=== PATIENT | male | born 1955 | race Two or more races ===

== ENCOUNTER 2025-05-22 18:47 | Inpatient (IN) | payer MEDICARE, SELFPAY ==
--- NOTE | 2025-05-22 18:56 | EKG_ITS ---
[facility] Test Date: 2025-05-22 Pat Name: SERGIO NICHOLAS Department: Room: - Gender: Male Backer Up: : 1955 Requested By: ED Temporary Provider Order Number: [id number] Reading MD: ED Temporary Provider Measurements Intervals [place] Rate: 96 P: 58 VA: 134 QRS: 53 QRSD: 86 T: 60 QT: 381 QTc: 483 Interpretive Statements SINUS RHYTHM NONSPECIFIC ST & T-WAVE ABNORMALITY No previous ECG available for comparison /store/S0/[id number].pdf
[2025-05-22 19:05] VITALS: BP 168/76; PULSE 94; RESP 20; TEMP 37.3; O2SAT 96
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
[2025-05-22 19:16] VITALS: BP 168/76; PULSE 89; RESP 20; O2SAT 98
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
[2025-05-22 19:40] LABS: Basophils # (Auto) 0.0 Thou/mm3 (0.0-0.2); Basophils % (Auto) 0 % (0-2.5); Eosinophils # (Auto) 0.5 Thou/mm3 (0.0-0.5); Eosinophils % (Auto) 4 % (0-10); Immature Granulocytes Auto 0.92 Thou/mm3 (0.00-0.00); Lymphocytes # (Auto) 3.5 Thou/mm3 (1.0-4.8); Lymphocytes % (Auto) 24 % (10-50); Mean Corpuscular HGB Conc 30.1 g/dl (31.0-37.0); Mean Corpuscular Hemoglobin 31.8 pg (25.0-35.0); Mean Corpuscular Volume 106 fL (80-100); Monocytes # (Auto) 1.0 Thou/mm3 (0.0-0.8); Monocytes % (Auto) 7 % (0-12); Neutrophils # (Auto) 8.5 Thou/mm3 (1.8-7.7); Neutrophils % (Auto) 59 % (37-80); Nucleated Red Blood Cell # 0.14 Thou/mm3 (0.00-0.00); Nucleated Red Blood Cell % 1 /100 WBC (0); Platelet Count 426 Thou/mm3 (140-440); RDW Standard Deviation 62.0 fL (35.1-43.9); Red Blood Count 1.73 Miln/mm3 (4.50-5.90); White Blood Count 14.5 Thou/mm3 (3.8-10.6)
[2025-05-22 19:46] LABS: Hematocrit 18.3 % (41.0-53.0); Hemoglobin 5.5 g/dL (13.5-16.0)
[2025-05-22 19:52] LABS: Alanine Aminotransferase < 7 U/L (10-49); Albumin, Serum 4.0 gm/dL (3.4-4.8); Albumin/Globulin Ratio 1.5 (1.2-2.2); Alkaline Phosphatase 74 U/L (46-116); Anion Gap 11 (7-16); Aspartate Amino Transferase 21 U/L (0-34); BUN/Creatinine Ratio 15 Ratio (12-20); Bilirubin,Total 2.0 mg/dL (0.3-1.2); Blood Urea Nitrogen 48 mg/dL (9-23); Calcium 9.3 mg/dL (8.3-10.6); Calcium (Corrected) 9.3 mg/dL (8.5-10.1); Carbon Dioxide 23.2 mMol/L (20.0-31.0); Chloride 107 mMol/L (98-107); Creatinine (Component) 3.1 mg/dL (0.6-1.3); Globulin 2.7 gm/dL (2.3-3.5); Glucose 133 mg/dL (74-106); Osmolality,Calculated 295 (275-295); Potassium 4.0 mMol/L (3.4-5.1); Sodium 141 mMol/L (136-145); Total Protein 6.7 gm/dL (5.7-8.2); Troponin I 0.032 ng/mL (0.0-0.045); eGFR 21 See Note
--- NOTE | 2025-05-22 21:25 | XR_ITS ---
Examination: Retroperitoneal ultrasound, complete Technique: Multiple high resolution grayscale images of the retroperitoneum obtained, including kidneys and bladder. Exam date and time:May 22, 2025 10:48 PM Indications: Chest pain radiating to left arm, diagnosis acute renal insufficiency Findings: Right kidney 8.5 cm cortex 1.2 cm 18 mm lower pole cyst Left kidney 10.0 cm cortex 1.9 cm Medical 19 mm cyst Moderate renal parenchymal scar formation No hydronephrosis No bladder mass or bladder calculi Bladder prevoid by 119 cc Prostate 4.9 x 3.7 x 4.5 cm no prostate nodules Impression: Moderate bilateral renal parenchymal scar formation Small right kidney with renal cortical thinning
--- NOTE | 2025-05-22 21:34 | ESHP_ITS ---
Documentation for date of: 05/22/25 HPI History of Present Illness Chief complaint: Chest pain History of present illness: 70 y/o M with PMHx significant for HTN, DM, CKD, prostate cancer with bone metastasis presents with chief complaint of chest pain x 1 day. Patient is visiting from [place], states has been his usual day of health until yesterday when he developed recurrent chest pain. Patient unable to describe chest pain in detail, states that it is left-sided, radiating down left arm, and strongly associated with rising from lying down to standing up. The chest pain is also associated with warm feelings, lightheadedness. Patient Dors is 1 episode of emesis this morning. Patient denies chest pain when at rest. Patient denies fevers, chills, shortness of breath, abdominal pain. ED COURSE: Labs significant for: WBC 14.5, hemoglobin 5.5. BUN 48, creatinine 3.1, EGFR 21. T. bili 2.0, LFTs otherwise normal. Stool occult blood negative. Troponin 0.032. Imaging significant for: Chest x-ray unremarkable. EKG unremarkable. 2 units PRBCs ordered in the ED. PMH: HTN, DM, CKD, prostate cancer with bone metastasis PSH: Kidney biopsy SH: Denies alcohol, tobacco, illicit drug use Allergies:?NKDA Medications: Patient unsure, med rec's pending. Review of Systems Review of Systems Systems Reviewed: All systems reviewed, normal except as documented Past Medical History Past Medical History Comments PMH COMMENT: PMH: HTN, DM, CKD, prostate cancer with bone metastasis PSH: Kidney biopsy SH: Denies alcohol, tobacco, illicit drug use Allergies:?NKDA Medications: Patient unsure, med rec's pending. Exam Vital Signs Temp Pulse Resp BP Pulse Ox O2 Del Method 99.2 F 89 20 168/76 H 98 Room Air 05/22/25 19:05 05/22/25 19:16 05/22/25 19:16 05/22/25 19:16 05/22/25 19:16 05/22/25 19:16 Narrative Exam PE: Gen: Well-developed and well-nourished. HEENT: NCAT, PERRLA, EOMI, MMM, anicteric conjunctivae. CVS: normal S1 and S2. RRR. No M/R/G. Resp: CTA B/L. No rhonchi, rales, crackles or wheezing. Abd: soft, non-tender, non-distended. MSK: Good ROM in BUE & BLE. No edema or rash. Neuro: CN II-XII grossly intact. Strength 5/5 in BUE & BLE. Alert and oriented x3. Psych: appropriate mood and affect. Results: Labs 05/22/25 19:18 05/22/25 19:18 Labs: Short CBC 05/22/25 Range/Units 19:18 WBC 14.5 H (3.8-10.6) Thou/mm3 Hgb 5.5 L* (13.5-16.0) g/dL Hct 18.3 L* (41.0-53.0) % Plt Count 426 (140-440) Thou/mm3 BMP 05/22/25 19:18 Sodium 141 Potassium 4.0 Chloride 107 Carbon Dioxide 23.2 BUN 48 H Creatinine 3.1 H Glucose 133 H Calcium 9.3 Cardiac Enzymes 05/22/25 Range/Units 19:18 Troponin I 0.032 (0.0-0.045) ng/mL Liver Function 05/22/25 Range/Units 19:18 Total Bilirubin 2.0 H (0.3-1.2) mg/dL AST 21 (0-34) U/L ALT < 7 L (10-49) U/L Alkaline Phosphatase 74 (46-116) U/L Albumin 4.0 (3.4-4.8) gm/dL Quality Measures Quality Measures VTE prophylaxis Advance care planning discussed with:: patient and child Medications Home Medications and Allergies Allergies Allergy/AdvReac Type Severity Reaction Status Date / Time No Known Allergies Allergy Verified 05/22/25 18:54 Visit Medications Acetaminophen (Acetaminophen 325 Mg Tablet) 650 mg PO Q6H PRN PRN Reason: Fever >100.4 or pain 1-3(mild) Stop: 06/21/25 21:21 Hydrocodone Bitart/Acetaminophen (Hydrocodone/Apap 5/325 Tablet) 1 tab PO Q4HR PRN PRN Reason: PAIN SCALE 4-10(Mod-Sev Stop: 05/27/25 21:21 Docusate Sodium (Docusate Sod 100 Mg Capsule) 100 mg PO QDAY PRN; Protocol PRN Reason: CONSTIPATION Stop: 06/21/25 21:21 Ondansetron HCl (Ondansetron Inj 2 Mg/Ml Inj 2 Ml) 4 mg IVP Q6H PRN; Protocol PRN Reason: NAUSEA OR VOMITING Stop: 06/21/25 21:21 Sennosides (Senna Tablet) 1 tab PO QDAY PRN; Protocol PRN Reason: constipation Stop: 06/21/25 21:21 Assessment & Plan Plan 70 y/o M with PMHx significant for HTN, DM, CKD, prostate cancer with bone metastasis presents with chief complaint of chest pain x 1 day, admitted for ACS rule out and symptomatic anemia. #ACS rule out Patient presented chief complaint of chest pain x 1 day. Patient states the pain is left-sided, rating down left arm, occurs when patient moves from lying down to standing. Sensation associated with morphine, when this consultation is at bedside. Pain can occur at rest. EKG benign, initial Trope 0.032. Patient's history of HTN, DM, CKD, at risk for ACS. - Trend troponin - Ordered BNP - Telemonitoring - TSH, A1c, lipid panel pending #Symptomatic anemia Patient presented with hemoglobin of 5.5. Chief complaint indicates possible presyncope with chest pain, warm feeling, feel he is about to faint associated with moving from lying down to standing. Patient denies melena, hematochezia, hematemesis. Stool occult blood negative. 2 units PRBCs ordered by ED. MCV 106. Notably patient has chronic kidney disease. - Posttransfusion H&H - Iron, B12, folate ordered, follow-up - LDH, haptoglobin, reticulocyte count ordered follow-up - Direct bilirubin peripheral smear ordered, follow-up - Avoid anticoagulants #CKD Patient reportedly of CKD, follows with [employer], concern for needing dialysis soon. BUN 48, creatinine 3.1, EGFR 21, no previous labs to compare. - Avoid nephrotoxins - Renally dose medications - Renal scan ordered, follow-up #HTN #DM #Prostate cancer with mets to bones Patient history as stated. Patient unsure of his medications. Patient reports taking insulin 5 units intermittently. Med reconciliation pending. Not currently chemotherapy given CKD. Follows with oncologist Dr. Jourdan Jewell in [place]. Initial serum glucose 133 - Resume home meds when appropriate, pending med rec's - A1c ordered, follow-up DVT prophylaxis: SCDs GI prophylaxis: Protonix Diet: Cardiac, renal, carb consistent Lines: Peripheral IV Code status: Full code Plan of care discussed with attending Dr. Martinez. Jared Lloyd MD PGY?2 Attending Provider Attestation/Addendum After examination of the patient and review of the clinical data I feel that this patient needs admission to the hospital for further treatment/evaluation. I have discussed and was present for the essential components of the history, physical examination, diagnosis, and treatment plan with the resident. I agree with the patient's care as documented by the resident and amended herein by me. Carlos Martinez, DO. Although this document has been carefully reviewed, there may still be some phonetic and other typographical errors. These errors are purely grammatical due to imperfections in the software program and should not be construed in any way to compromise the substance of the patient's medical care during this visit. Patient seen and evaluated in the ED. In short, 70-year-old male with a significant's medical history of prostate cancer with bone metastasis and per chart review, on leuprolide, follows with oncologist in [place], Dr. Jourdan Jewell, hypertension, diabetes on insulin, CKD, also follows with [employer] in [place] where he is from, the patient is presently out visiting his son here in [place], presented with chest pain for approximately 1 day prior to admission. At time of bedside visit, the pain had largely resolved, he denies any other abdominal pain with and without palpation to include right upper quadrant pain. He denies palpitations, headache, vision disturbances, nausea, vomiting, diarrhea at present. In the ED, BP was 168/76, other vital signs stable, significant labs included WBC of 14.5, hemoglobin was 5.5 with an MCV of 106, he was presently being transfused 2 units by the ED, sodium potassium within normal limits, BUN 48, creatinine 3.1, unknown baseline however per the patient's daughter who we spoke with on the phone, his [employer] was considering dialysis, T. bili 2.0, other liver enzymes normal, troponin negative, chest x-ray unremarkable and EKG also demonstrating NSR. FOBT was negative Patient subsequently admitted to acute telemetry for ACS rule, the patient may have had anginal symptoms in setting of severe anemia, the patient's macrocytic anemia possibly secondary to CKD versus possibly MDS from his metastatic prostate cancer, unclear if the patient actually has an HOOD on CKD, uremia, slightly elevated T. bili however the patient completely asymptomatic. As such the patient will be transfused for hemoglobin less than 7, transfused 2 units in the ED. GI not consulted now, lower suspicion for GI bleed at this time, may repeat FOBT tomorrow however we will defer to day team, iron panel, reticulocyte count, B12, folate, LDH, haptoglobin, peripheral smear has all been ordered. We will trend the troponin, and a renal ultrasound has been ordered as well as a BNP. A1c, LDL and TSH also ordered. Patient is stable, doing well, will monitor closely tonight. The patient's home meds that I discovered in the system are as follows however final med rec from the patient's daughter is pending: Procrit, hydralazine, Coreg, lisinopril, Crestor, calcitriol, leuprolide, Lantus and previous usage of prednisone.
[2025-05-22 21:53] LABS: OBS Card Lot # 0124; OBS Developer Expiration Date 0926; OBS Developer Lot # 23003; OBS Performed By escas1; OBS QC OK? Yes; Occult Blood, Stool Negative (Negative)
[2025-05-22 21:56] LABS: Immature Reticulocyte Fraction 41.9 % (2.3-13.4); Reticulocyte % (Auto) 4.9 % (0.5-1.5); Reticulocyte Absolute Auto 78.6 Biln/L (25.0-75.0); Reticulocyte Hgb Content 35.4 pg (28.0-35.0)
[2025-05-22 21:58] LABS: Path Review Blood Smear Sent to Pathologist
[2025-05-22 22:09] LABS: Bilirubin,Direct 0.5 mg/dL (0.0-0.3); LDH (Lactate Dehydrogenase) 414 U/L (120-246)
[2025-05-22 22:21] LABS: B-Type Natriuretic Peptide 104 pg/mL (0-100)
[2025-05-22 22:36] LABS: Folate 8.53 ng/mL (>5.38); Vitamin B12 417 pg/mL (211-911)
[2025-05-22 23:07] VITALS: BP 140/68; PULSE 83; RESP 20; TEMP 37.3; O2SAT 97
[2025-05-22 23:23] VITALS: BP 140/68; PULSE 83; RESP 16; TEMP 37.2; O2SAT 96
[2025-05-22 23:28] VITALS: BP 140/68; PULSE 84; RESP 16; TEMP 37.2; O2SAT 96
[2025-05-23] VITALS (11 sets, daily range): BP systolic 127–153; BP diastolic 60–89; PULSE 74–82; RESP 13–24; TEMP 36.4–37.5; O2SAT 96–98
[2025-05-23 05:46] LABS: Basophils # (Auto) 0.1 Thou/mm3 (0.0-0.2); Basophils % (Auto) 1 % (0-2.5); Eosinophils # (Auto) 0.5 Thou/mm3 (0.0-0.5); Eosinophils % (Auto) 4 % (0-10); Hematocrit 25.2 % (41.0-53.0); Immature Granulocytes Auto 0.68 Thou/mm3 (0.00-0.00); Lymphocytes # (Auto) 2.6 Thou/mm3 (1.0-4.8); Lymphocytes % (Auto) 24 % (10-50); Mean Corpuscular HGB Conc 32.5 g/dl (31.0-37.0); Mean Corpuscular Hemoglobin 32.5 pg (25.0-35.0); Mean Corpuscular Volume 100 fL (80-100); Monocytes # (Auto) 0.9 Thou/mm3 (0.0-0.8); Monocytes % (Auto) 8 % (0-12); Neutrophils # (Auto) 6.2 Thou/mm3 (1.8-7.7); Neutrophils % (Auto) 57 % (37-80); Nucleated Red Blood Cell # 0.04 Thou/mm3 (0.00-0.00); Nucleated Red Blood Cell % 0 /100 WBC (0); Platelet Count 353 Thou/mm3 (140-440); RDW Standard Deviation 58.1 fL (35.1-43.9); Red Blood Count 2.52 Miln/mm3 (4.50-5.90); White Blood Count 11.0 Thou/mm3 (3.8-10.6)
[2025-05-23 05:55] LABS: Hemoglobin 8.2 g/dL (13.5-16.0)
[2025-05-23 06:03] LABS: INR 1.0 (0.9-1.3); Partial Thromboplastin Time 24.8 Seconds (22.0-36.0); Prothrombin Time 11.3 Seconds (9.0-12.2)
[2025-05-23 06:26] LABS: Iron 108 mcg/dL (65-175); Percent Iron Saturation 46 % (20-55); Total Iron Binding Capacity 233 mcg/dL (250-425); Unsaturated Iron Binding 125 (225-295)
[2025-05-23 06:50] LABS: Alanine Aminotransferase < 7 U/L (10-49); Albumin, Serum 3.9 gm/dL (3.4-4.8); Albumin/Globulin Ratio 2.0 (1.2-2.2); Alkaline Phosphatase 62 U/L (46-116); Anion Gap 12 (7-16); Aspartate Amino Transferase 17 U/L (0-34); BUN/Creatinine Ratio 15 Ratio (12-20); Bilirubin,Total 1.1 mg/dL (0.3-1.2); Blood Urea Nitrogen 43 mg/dL (9-23); Calcium 9.5 mg/dL (8.3-10.6); Calcium (Corrected) 9.6 mg/dL (8.5-10.1); Carbon Dioxide 21.8 mMol/L (20.0-31.0); Cardiac Risk Estimate 4.0 RATIO (4.0-6.7); Chloride 111 mMol/L (98-107); Cholesterol 120 mg/dL (132-200); Creatinine (Component) 2.8 mg/dL (0.6-1.3); Estimated Creatinine Clearance 23.8 mL/min (>60); Globulin 2.0 gm/dL (2.3-3.5); Glucose 105 mg/dL (74-106); HDL Cholesterol 30 mg/dL (40-60); LDL Cholesterol,Calculated 35 mg/dL (0-130); Magnesium 1.9 mg/dL (1.6-2.6); Osmolality,Calculated 299 (275-295); Phosphorous 3.2 mg/dL (2.4-5.1); Potassium 4.1 mMol/L (3.4-5.1); Sodium 145 mMol/L (136-145); Thyroid Stimulating Hormone 1.80 uIU/mL (0.55-4.78); Total Protein 5.9 gm/dL (5.7-8.2); Triglycerides 275 mg/dL (30-150); Troponin I 0.024 ng/mL (0.0-0.045); eGFR 24 See Note
--- NOTE | 2025-05-23 07:26 | PD.RESPRO ---
Documentation for date of: 05/23/25 Exam Vital Signs Temp Pulse Resp BP Pulse Ox O2 Del Method 97.6 F 80 18 153/75 H 96 Room Air 05/23/25 03:38 05/23/25 04:00 05/23/25 03:38 05/23/25 03:38 05/23/25 03:38 05/23/25 03:27 Objective Labs 05/23/25 05:06 05/23/25 05:06 Labs: Laboratory Results - last 24 hr 05/22/25 05/22/25 05/22/25 19:18 20:00 20:43 WBC 14.5 H RBC 1.73 L* Hgb 5.5 L* Hct 18.3 L* MCV 106 H MCH 31.8 MCHC 30.1 L RDW Std Deviation 62.0 H Plt Count 426 Neut % (Auto) 59 Lymph % (Auto) 24 [place] % (Auto) 7 Eos % (Auto) 4 Baso % (Auto) 0 Neut # (Auto) 8.5 H Lymph # (Auto) 3.5 [place] # (Auto) 1.0 H Eos # (Auto) 0.5 Baso # (Auto) 0.0 Immature Gran # (Auto) 0.92 H Absolute Nucleated RBC 0.14 H Immature Gran % 6 H Nucleated RBC % 1 H Smear Path Review Sent to Pathologist Not Performed. Retic Count (auto) 4.9 H Absolute Retic 78.6 H Immature Retic Fraction 41.9 H Retic Hgb Content CHr 35.4 H PT INR APTT Sodium 141 Potassium 4.0 Chloride 107 Carbon Dioxide 23.2 Anion Gap 11 BUN 48 H Creatinine 3.1 H Estim Creat Clear Calc Not Performed. eGFR 21 L BUN/Creatinine Ratio [address] Glu mg/dL Hemoglobin A1c Calculated Osmolality 295 Calcium 9.3 Corrected Calcium 9.3 Phosphorus Magnesium Iron TIBC Iron Saturation Unsat Iron Binding Total Bilirubin 2.0 H Direct Bilirubin AST 21 ALT < 7 L Alkaline Phosphatase 74 Lactate Dehydrogenase Troponin I 0.032 B-Natriuretic Peptide 104 H Total Protein 6.7 Albumin 4.0 Globulin 2.7 Albumin/Globulin Ratio 1.5 Triglycerides Cholesterol LDL Cholesterol, Calc HDL Cholesterol Cholesterol/HDL Ratio Vitamin B12 417 Folate 8.53 TSH Stool Occult Blood Negative Blood Type O Positive Antibody Screen NEGATIVE Crossmatch See Detail Blood Bank Wristband ID Yes 05/22/25 05/23/25 21:29 05:06 WBC 11.0 H RBC 2.52 L Hgb 8.2 L D Hct 25.2 L MCV 100 MCH 32.5 MCHC 32.5 RDW Std Deviation 58.1 H Plt Count 353 D Neut % (Auto) 57 Lymph % (Auto) 24 [place] % (Auto) 8 Eos % (Auto) 4 Baso % (Auto) 1 Neut # (Auto) 6.2 Lymph # (Auto) 2.6 [place] # (Auto) 0.9 H Eos # (Auto) 0.5 Baso # (Auto) 0.1 Immature Gran # (Auto) 0.68 H Absolute Nucleated RBC 0.04 H Immature Gran % 6 H Nucleated RBC % 0 Smear [address] Review Retic Count (auto) Absolute Retic Immature Retic Fraction Retic Hgb Content CHr PT 11.3 INR 1.0 APTT 24.8 Sodium 145 Potassium 4.1 Chloride 111 H Carbon Dioxide 21.8 Anion Gap 12 BUN 43 H Creatinine 2.8 H Estim Creat Clear Calc 23.8 L eGFR 24 L BUN/Creatinine Ratio [address] Glu mg/dL Cancelled Hemoglobin A1c Cancelled Calculated Osmolality 299 H Calcium 9.5 Corrected Calcium 9.6 Phosphorus 3.2 Magnesium 1.9 Iron 108 TIBC 233 L Iron Saturation 46 Unsat Iron Binding 125 L Total Bilirubin 1.1 D Direct Bilirubin 0.5 H AST 17 ALT < 7 L Alkaline Phosphatase 62 Lactate Dehydrogenase 414 H Troponin I 0.024 B-Natriuretic Peptide Total Protein 5.9 Albumin 3.9 Globulin 2.0 L Albumin/Globulin Ratio 2.0 Triglycerides 275 H Cholesterol 120 L LDL Cholesterol, Calc 35 HDL Cholesterol 30 L Cholesterol/HDL Ratio 4.0 Vitamin B12 Folate TSH 1.80 Stool Occult Blood Blood Type Antibody Screen Crossmatch Blood Bank Wristband ID Quality Measures Quality Measures VTE prophylaxis Assessment & Plan Assessment Current Active Medications: Generic Name Dose Route Start Last Admin Trade Name Freq PRN Reason Stop Dose Admin Acetaminophen 650 mg 05/22/25 21:22 Acetaminophen 325 Mg Tablet PO 06/21/25 21:21 Q6H PRN Fever >100.4 or pain 1-3(mild) Hydrocodone Bitart/Acetaminophen 1 tab 05/22/25 21:22 Hydrocodone/Apap 5/325 Tablet PO 05/27/25 21:21 Q4HR PRN PAIN SCALE 4-10(Mod-Sev Docusate Sodium 100 mg 05/22/25 21:22 Docusate Sod 100 Mg Capsule PO 06/21/25 21:21 QDAY PRN CONSTIPATION Protocol Ondansetron HCl 4 mg 05/22/25 21:22 Ondansetron Inj 2 Mg/Ml Inj 2 Ml IVP 06/21/25 21:21 Q6H PRN NAUSEA OR VOMITING Protocol Pantoprazole Sodium 40 mg 05/23/25 09:00 Pantoprazole Inj 40 Mg Vial IVP 06/22/25 08:59 QDAY ADRIANA Sennosides 1 tab 05/22/25 21:22 Senna Tablet PO 06/21/25 21:21 QDAY PRN constipation Protocol
--- NOTE | 2025-05-23 11:01 | PC.SS ---
Patient is a 70YO Turkish speaking, male, reason for visit: ACS RULE OUT, ANEMIA SS met with patient and his sister in law Shaina Paige at bedside. Role and purpose of today?s contact was explained. Patient confirmed his demographic information and stated he lives with his daughter. He stated his daughter Luis Carlos Paige [phone], is his primary surrogate medical decision maker. Patient stated he is independent with ADL completion and ambulation as well.? PCP: Dr. Elia Mancilla ?[facility], unable to recall last appt. Dental Service Technician: Estela Vera. Oncologist: Jourdan Vaughan. ? Next of kin: Daughter Luis Carlos Paige [phone], Discharge plan: Home, parent to transport.
[2025-05-23 12:39] LABS: Hematocrit 25.1 % (41.0-53.0)
[2025-05-23 12:51] LABS: Hemoglobin 8.0 g/dL (13.5-16.0)
--- NOTE | 2025-05-23 12:56 | ESDS_ITS ---
<Statement entered by Carrie Amaral MD - 05/23/25 17:10> I attest that I was physically present for the evaluation, physical examination, lab and imaging review of the patient with the residents. I discussed the case with the residents and agree with the findings and plans of care as documented below. At bedside today, patient states he is feeling well and denies any new complaints. Vital signs are stable. Hemoglobin level after transfusion is 8.2, follow-up level also remained stable. Noted to have elevated reticulocyte count normal iron panel, normal folate and vitamin B12. LDH is elevated but haptoglobin and peripheral blood smear are pending. Renal ultrasound was obtained, shows findings consistent with CKD. We will discharge the patient, recommended follow-up CBC in 2 days, also recommended to follow-up with PCP within a week, may need further workup to evaluate the cause of anemia. Carrie Amaral MD <Statement entered by Ania Ramirez MD - 05/23/25 15:56> Note reviewed, I agree with most of its contents and agree with the patient's care as documented by Dr. Infante. The patient's management plan was discussed with my attending physician Dr. Amaral. Ania Ramirez, PGY-2 Planned Discharge Date 05/23/25 DS: Providers Provider Date of admission: 05/22/25 21:22 Primary care physician: Physician Mariana Primary/Family Admitting Provider: Darren Martinez DO Attending Provider on Admission: Darren Martinez DO Consults: 05/22/25 21:22 Referral Physical Therapy Routine Comment: Physician Instructions: Attending Provider on DC: Dr. Amaral Discharging Provider: Dr. Amaral DS: Diagnosis Problem List Completed Was Problem List Reviewed/Reconciled?: Yes Hospital Course Hospital Course Hospital course: Mr. Baires is a 70-year-old gentleman with a past medical history of hypertension diabetes CKD stage IV prostate cancer with bone metastases who presented with chest pain for 1 day patient states that he is visiting family in [place] from [place]. He endorses radiating down the left arm and pleuritic pain worse with lying flat he endorses lightheadedness and feeling warm. Patient states that he had 1 episode of emesis this morning noticed nonbloody nonbilious. His labs were significant for hgb 5.5, and Cr 3.1, he was given 2 Units of PRBC, FOBT negative, trop negative, ekg and cxr negative. His T bill was elevated to 2, LFT normal. workup for the anemia revealed some concern for hemolytic anemia given the elevated direct rahul was elevated to 0.5, his iron levels were wnl, elevated LDH 414. B12 and folate wnl, we reccomend that he follow up outpatient for workup of hemolytic anemia. after the 2 units prbc his hgb increased to 8.2 and were stably elevated on repeat testing 6 hours later. For his HOOD on CKD, his Cr improved from 3.1 to 2.8 after given 2 units prbc, likely prerenal, in setting of low hemaglobin. 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 His triglycerides were elvated to 275, so we reccomend he follow up with his primary care doctor to make adjustments to his statin, pt stable and ready for discharge Discharge instructions Please take your home medications as prescribed. Please follow up with your PCP and Nephrology in 1 week, and follow up with anemia outpatient studies Please get your CBC done in any lab in 2 days to monitor your Hemoglobin. If symptoms worsen, please return to the ED at any time. Plan discussed with Dr. Ramirez and Dr. Cristin Infante MD PGY1 Status at Discharge Functional status at discharge: independent ambulation Overall status at discharge: patient is progressing back to baseline Time Spent with Patient Time attestation: Total time spent providing and/or coordinating discharge services: 31 min Time spent: Greater than 30 minutes Exam Vital Signs Temp Pulse Resp BP Pulse Ox O2 Del Method 99.1 F 80 17 134/69 H 98 Room Air 05/23/25 08:00 05/23/25 08:00 05/23/25 08:00 05/23/25 08:00 05/23/25 08:00 05/23/25 08:00 Narrative Exam Gen: Well-developed and well-nourished. HEENT: NCAT, PERRLA, EOMI, MMM, anicteric conjunctivae. CVS: normal S1 and S2. RRR. No M/R/G. Resp: CTA B/L. No rhonchi, rales, crackles or wheezing. Abd: soft, non-tender, non-distended. MSK: Good ROM in BUE & BLE. No edema or rash. Neuro: CN II-XII grossly intact. Strength 5/5 in BUE & BLE. Alert and oriented x3. Psych: appropriate mood and affect. Discharge Plan Plan Patient Disposition: HOME (Self Care) Care Plan Goals: Please take your home medications as prescribed. Please follow up with your PCP and Nephrology in 1 week, and follow up with anemia outpatient studies Please get your CBC done in any lab in 2 days to monitor your Hemoglobin. If symptoms worsen, please return to the ED at any time. Prescriptions/Referrals Prescriptions/Med Rec: Continued hydralazine 100 mg tablet 100 mg PO TID Patient Comments: TOME 1 TABLETA POR LA BOCA PRITESH VECES AL ROSEY lisinopril 20 mg tablet 20 mg PO .once daily Patient Comments: JESICA 1 TABLETA POR LA BOCA ÁLVARO VEZ AL ROSEY calcium carbonate 200 mg calcium (500 mg) tablet,chewable 500 mg PO QDAY ferrous sulfate [FeroSul] 325 mg (65 mg iron) tablet 325 mg PO .od Patient Comments: TAKE 1 TABLET BY MOUTH THREE TIMES DAILY rosuvastatin 20 mg tablet 20 mg PO HS Patient Comments: TAKE 1 TABLET BY MOUTH EVERY NIGHT FOR CHOLESTEROL sodium bicarbonate 650 mg tablet 650 mg PO BID Referrals: No Primary/Family,Physician [Primary Care Provider] Outpatient Orders (i.e. Home Health, Labs, Imaging): CBC (Routine) Timeframe: 2 Days Location: Determined by Patient Ordered By: Marissa De Jesus Patient/Caregiver Discharge Instructions Education Materials: Anemia During Cancer, Anemia and Kidney Disease Print Language: Japanese Stand Alone Forms: Jaja Award Info., Patient Portal Info Letter Discharge Order Discharge Orders: Discharge (Routine); Ordered 05/23/25 Ordered By: Marissa De Jesus Quality Discharge Quality Measures VTE prophylaxis
[2025-05-24 13:31] LABS: Misc Send Out* See Sep Rpt
[2025-05-30 09:08] LABS: Haptoglobin* <10 mg/dL (43-212)
== END 2025-05-23 15:24 | disposition home or self-care (01) | DRG 313 ==
LOC: SERX 20:05 → SERHOLD 21:35 → S2NX 23:55
PROVIDERS: Admitting Provider Student in an Organized Health Care Education/Training Program; Emergency Provider Emergency Medicine; Visit Provider Student in an Organized Health Care Education/Training Program
DX: R07.9 Chest pain, unspecified (principal); N17.9 Acute kidney failure, unspecified; N18.4 Chronic kidney disease, stage 4 (severe); I12.9 Hypertensive chronic kidney disease with stage 1 through stage 4 chronic kidney disease, or unspecified chronic kidney disease; E11.22 Type 2 diabetes mellitus with diabetic chronic kidney disease; D63.1 Anemia in chronic kidney disease; Z79.4 Long term (current) use of insulin; F17.200 Nicotine dependence, unspecified, uncomplicated; Z79.899 Other long term (current) drug therapy
CPT/HCPCS: 36415; 71045; 76770; 80053; 80061; 82248; 82270; 82607; 82746; 83010; 83036; 83540; 83550; 83615; 83735; 83880; 84100; 84443; 84484; 85014; 85018; 85025; 85046; 85610; 85730; 86850; 86900; 86901; 86923; 93005; 96374; 99284; A4649; J2470; P9016; A9270